=== PATIENT | male | born 1950 | race Caucasian/White ===

== ENCOUNTER → 2019-03-08 | Outpatient (CLI) | payer MEDICARE | LOC: SLEEP 19:45 | PROVIDERS: ATTEND Internal Medicine Critical Care Medicine | DX: G47.33 Obstructive sleep apnea (adult) (pediatric) (principal) | CPT/HCPCS: 95810 ==

== ENCOUNTER → 2019-08-06 | Outpatient (CLI) | payer OTHER ==
--- NOTE | 2019-08-22 03:57 | Pulmonary Function Test ---
DATE OF STUDY: 08/06/2019 REFERRING PHYSICIAN: Ady Evangelista MD STUDY: Titration polysomnogram. HISTORY OF PRESENT ILLNESS: Mr. Luong is a pleasant 69-year-old gentleman with severe obstructive sleep apnea. On March 08, 2019, the patient underwent diagnostic polysomnogram showing apnea-hypopnea index of 30.4 events per hour with the lowest oxygen saturation of 89%. Furthermore, there were a PLMS index of 28.1 events per hour that required further evaluation optimally after CPAP titration. PAST MEDICAL HISTORY: The patient has past medical history of diabetes, obstructive sleep apnea, allergies, back pain, chronic bronchitis. CURRENT MEDICINES: Include albuterol, N-acetylcysteine, ProAir, Symbicort, other medicines not specified. BMI is recorded at 49 previously. [place] Sleepiness Scale score was 14. The patient presents for a titration polysomnogram. FINDINGS: The patient had a total recording time of 30.9 minutes with sleep efficiency of 0%. The patient stated he felt like his head was hurting. CPAP was initiated in at various pressures including 7, 11, and 14 cm water pressure as the patient felt like he was not getting enough air. The patient eventually requested for removal of the polysomnogram hookup. He requested for the study to be aborted at this time. No adequate titration of CPAP equipment was performed on this night nor was there any reliable evaluation for any periodic limb movements. Single lead EKG analysis showed a few PVCs in the beginning of the night. INTERPRETATION: This was an abnormal titration polysomnogram due to the presence of: 1. Altered sleep architecture. The patient with increased hypervigilance on this day due to reported headaches and inability to get enough air. The patient's sleep study was inadequate for titration to any specified CPAP pressure. As stated above, titration study was aborted during the middle of recording time. Clinical correlation is recommended, which could include consideration to repeat a titration polysomnogram or a a trial of autoCPAP. Follow up monitoring should be close especially if Auto- CPAP is tried for this non-recommended indication. Consideration could be for followup with an in-lab titration polysomnogram after the patient is accustomed to the auto-CPAP or nocturnal oximetry at home. Clinical follow up is definitely recommended to ensure appropriate treatment response. MD GIRISH Pike Certified in Sleep Medicine GMN/MODL /[id number] MTDD
== END ==
LOC: SLEEP 19:49
PROVIDERS: ATTEND Internal Medicine Critical Care Medicine
DX: G47.33 Obstructive sleep apnea (adult) (pediatric) (principal)

== ENCOUNTER → 2020-05-07 | Day surgery (SDC) | payer MEDICARE, OTHER ==
[2020-04-26 13:08] LABS: BASOPHILS % 0.7 % (0.0-1.0); HEMATOCRIT 38.6 % (38.2-49.6); HEMOGLOBIN 12.1 g/dL (14.0-18.0); LYMPHOCYTES # (AUTO) 1.1 (1.0-3.2); LYMPHOCYTES % 20.7 % (18.0-39.1); MEAN CORPUSCULAR HEMOGLOBIN 27.4 pg (28-32); MEAN CORPUSCULAR HGB CONC 31.3 g/dL (31-35); MEAN CORPUSCULAR VOLUME 87.5 fL (81-99); MONOCYTES # (AUTO) 0.5 (0.2-0.8); MONOCYTES % 8.4 % (4.4-11.3); NEUTROPHILS # (AUTO) 3.7 (2.1-6.9); NEUTROPHILS % 68.5 % (38.7-80.0); PLATELET COUNT 233 x10e3/uL (140-360); RED BLOOD COUNT 4.41 x10e6/uL (4.3-5.7)
[~2020-05-07] MED LIST: ASPIR 8181 MG PO; ATORVASTATIN CA20 MG PO; BRILINTA90 MG PO; CARBAMAZEPINE200 MG PO; CETIRIZINE HCL10 MG PO; CLONAZEPAM0.5 MG PO; FINASTERIDE5 MG PO; FLOMAX0.4 MG PO; FUROSEMIDE40 MG PO; HUMULIN R100 UNIT/2 SQ; LANTUS 3ML100 UNITS/ SQ; LYRICA150 MG PO; METFORMIN HCL500 MG PO; MONTELUKAST SOD10 MG PO; PROPOFOL IV EMULSION 10 MG/ML 20 ML VIAL ONE
[2020-05-07 12:45] VITALS: BP 123/57
== END | disposition home or self-care (01) ==
LOC: OR 08:32
PROVIDERS: ATTEND Internal Medicine Gastroenterology
DX: Z12.11 Encounter for screening for malignant neoplasm of colon (principal); D12.0 Benign neoplasm of cecum; D12.4 Benign neoplasm of descending colon; D12.5 Benign neoplasm of sigmoid colon; K58.9 Irritable bowel syndrome, unspecified; K21.9 Gastro-esophageal reflux disease without esophagitis; R56.9 Unspecified convulsions; M19.90 Unspecified osteoarthritis, unspecified site; H91.90 Unspecified hearing loss, unspecified ear; R53.1 Weakness; E11.9 Type 2 diabetes mellitus without complications; K75.9 Inflammatory liver disease, unspecified; J44.9 Chronic obstructive pulmonary disease, unspecified; G47.33 Obstructive sleep apnea (adult) (pediatric); I25.10 Atherosclerotic heart disease of native coronary artery without angina pectoris; I11.0 Hypertensive heart disease with heart failure; I50.9 Heart failure, unspecified; E78.5 Hyperlipidemia, unspecified; I45.10 Unspecified right bundle-branch block; Z88.1 Allergy status to other antibiotic agents; F17.210 Nicotine dependence, cigarettes, uncomplicated; Z01.810 Encounter for preprocedural cardiovascular examination; Z01.812 Encounter for preprocedural laboratory examination; Z11.59 Encounter for screening for other viral diseases; Z79.82 Long term (current) use of aspirin; Z79.84 Long term (current) use of oral hypoglycemic drugs; Z79.4 Long term (current) use of insulin; Z79.01 Long term (current) use of anticoagulants; Z95.5 Presence of coronary angioplasty implant and graft; Z85.828 Personal history of other malignant neoplasm of skin
CPT/HCPCS: 36415 ×2; 45384; 45385; 82948; 85025; 93005; J2704; U0002 ×2; 45378